=== PATIENT | female | born 1945 | race Caucasian/White ===

== ENCOUNTER → 2024-03-10 16:49 | Outpatient (CLI) | payer MEDICARE, OTHER, SELFPAY ==
--- NOTE | 2024-03-10 16:56 | DI.RAD.S_ITS ---
PROCEDURE: XR FOREARM LT 2V INDICATIONS: Contusion of left forearm, initial encounter TECHNIQUE: 2 views of the forearm were acquired. COMPARISON: None. FINDINGS: Bones: No fractures or dislocations. No suspicious bony lesions. Soft tissues: No suspicious soft tissue calcifications or masses. IMPRESSION: No acute bony abnormality. Dictated by: Morteza Hernandez M.D. on 03/11/2024 at 9:36 Approved by: Morteza Hernandez M.D. on 03/11/2024 at 9:36
== END ==
PROVIDERS: PCP Family Medicine; Referring Provider Family Medicine; Visit Provider Family Medicine
DX: S50.12XA Contusion of left forearm, initial encounter (principal); X58.XXXA Exposure to other specified factors, initial encounter
CPT/HCPCS: 73090

== ENCOUNTER → 2024-10-21 09:49 | Outpatient (CLI) | payer MEDICARE, OTHER, SELFPAY ==
--- NOTE | 2024-10-21 09:53 | DI.RAD.S_ITS ---
PROCEDURE: XR LUMBAR SPINE MIN 4V INDICATIONS: BACK PAIN TECHNIQUE: 5 views of the lumbar spine were acquired, including bilateral oblique views. COMPARISON: [facility], MR, MR LUMBAR SPINE WITHOUT CONTRAST, 04/08/2024, 7:40. [facility], CR, XR LUMBAR SPINE WITH FLEXION EXTENSION 5 VIEWS, 06/04/2024, 9:09. FINDINGS: Bones: 5 nonrib-bearing vertebrae are present. There is normal bony alignment. Chronic appearing superior endplate anterior wedge compression deformity at L1 level is seen with up to 25% loss of L1 vertebral body height anteriorly not significantly changed from previous studies. No new vertebral body compression fracture. Degenerative endplate changes are noted throughout lumbar spine. Bilateral facet arthrosis at L4-5 and bones are seen. No suspicious bony lesions. Soft tissues: Overlying bowel gas pattern is normal. No suspicious soft tissue calcifications. Oblique images: No pars defects. IMPRESSION: Chronic appearing anterior wedge compression deformity involving L1 with up to 25% loss of L1 vertebral body height. No acute compression fracture or significant spondylolisthesis. [id number] degenerative disc disease throughout lumbar spine. No gross pars defects. Dictated by: Leo Ferrera M.D. on 10/21/2024 at 10:22 Approved by: Leo Ferrera M.D. on 10/21/2024 at 10:24
== END ==
PROVIDERS: PCP Family Medicine; Referring Provider Physical Medicine & Rehabilitation; Visit Provider Physical Medicine & Rehabilitation
DX: M47.816 Spondylosis without myelopathy or radiculopathy, lumbar region (principal); M43.8X6 Other specified deforming dorsopathies, lumbar region; M54.9 Dorsalgia, unspecified
CPT/HCPCS: 72110

== ENCOUNTER 2024-11-10 09:52 | Outpatient (CLI) | payer MEDICARE, OTHER, SELFPAY ==
[2024-11-10] VITALS (9 sets, daily range): BP systolic 122–163; BP diastolic 31–73; PULSE 47–57; RESP 12–24; TEMP 36.2; O2SAT 99–100
[2024-11-10] MEDS: MIDAZOLAM 2 MG/2 ML VIAL IV (11:44)
[2024-11-10] MEDS: LIDOCAINE 1% 20 ML 5 ML INJ (11:49)
[2024-11-10] MEDS: BUPIVACAINE 0.5% (PF) 10 ML VIAL 2 ML INJ (11:49)
--- NOTE | 2024-11-10 12:06 | P.PCN_ITS ---
Date/Time/Diagnoses Date of procedure: 11/10/24 Time of procedure: 12:06 Pre-procedure diagnosis: FACET ARTHROPATHY Post-procedure diagnosis: same Procedure Notes Procedure: 1. BILATERAL T12 and L1 DIAGNOSTIC MB BLOCKS Indications: Ofelia is referred by Dr. Pastor for treatment of Bilateral Axial Thoracic back pain. Physician: Prince Rodrigez Total Fluoroscopy time (seconds): 14 Total sedation minutes: 16 Complications: none Procedure in detail & Post-procedure care: DESCRIPTION OF PROCEDURE Fluoroscopically guided, contrast-controlled bilateral T12, L1 medial branch blocks with 0.5cc of 0.5% Marcaine. Following review of allergy and review of potential side effects and complications, including, but not necessarily limited to, infection, allergic reaction, local tissue breakdown, nerve injury, paralysis, stroke and possible , the patient indicated that the patient understood and agreed to proceed. An informed consent document was signed by the patient, witnessed by a nurse, and placed in the patient's chart. After review of previous anaesthesic history and IV conscious sedation the patient was deemed safe to proceed with today's procedure with IV conscious sedation as ASA class II designation. Safety time-out was performed to confirm patient ID, procedure to be performed and site of procedure. IV sedation was accomplished with a combination of 2mg of Versed was administered by the RN after DO order, titrated to patient comfort during the course of the procedure while the patient remained responsive to all verbal commands In the prone position, following sterile prep and drape of the lumbar region, the right T12, L1 anatomical location of the medial branch of the dorsal ramus was identified fluoroscopically. Subsequently an anesthetic skin wheal using 1% lidocaine solution was initiated at each of the anatomical spots. Subsequently then a 22-gauge 3.5-inch spinal needle was atraumatically introduced and advanced under fluoroscopic guidance at each of the corresponding sites at the right T12, L1 MB. After negative aspiration, 0.2cc of Isovue 200 was injected, confirming placement without vascular or intrathecal uptake. Subsequently then 0.5cc of 0.5% Marcaine solution was injected at each of the corresponding sites at the right T12, L1 medial branch locations. The identical procedure was replicated on the left. The patient tolerated the procedure well without signs or symptoms of complications. The patient tolerated the procedure well without signs or symptoms of complications prior to transfer to the recovery area continued monitoring without incident. Post-procedure, the patient was monitored initiating provocative activities to measure the amount of relief from block of the facetogenic pain. The patient reported a VAS of 7 prior to the procedure and a post-procedure VAS of 1. It has been a pleasure to assist in the diagnostic and therapeutic care of your patient. POST OP INSTRUCTIONS The patient was provided with a Pain Log to complete over the next several hours and subsequent days prior to the patient's follow up with the ordering physician. If the patient has biochemistry technician relief to the solution applied, then they may be a candidate for medial branch rhizotomy. The patient is aware, was provided, once again, with a Pain Log and will follow up with the referring physician for review and clinical correlation
== END 2024-11-10 12:28 | disposition home or self-care (01) ==
LOC: RAD 09:53
PROVIDERS: PCP Family Medicine; Referring Provider Physical Medicine & Rehabilitation; Visit Provider Physical Medicine & Rehabilitation
DX: M47.815 Spondylosis without myelopathy or radiculopathy, thoracolumbar region (principal)
CPT/HCPCS: 64490; 64493; 99152; J2250

== ENCOUNTER 2025-01-21 08:59 | Outpatient (CLI) | payer MEDICARE, OTHER, SELFPAY ==
[2025-01-21] VITALS (8 sets, daily range): BP systolic 109–158; BP diastolic 56–72; PULSE 52–58; RESP 14–18; TEMP 36.8; O2SAT 97–100
[2025-01-21] MEDS: MIDAZOLAM 2 MG/2 ML VIAL IV (10:30)
[2025-01-21] MEDS: LIDOCAINE 2% INJ MDV 20ML 5 ML INJ (10:33)
[2025-01-21] MEDS: LIDOCAINE 1% 20 ML INJ (10:34)
--- NOTE | 2025-01-21 10:49 | P.PCN_ITS ---
Date/Time/Diagnoses Date of procedure: 01/21/25 Time of procedure: 10:49 Pre-procedure diagnosis: FACET ARTHROPATHY Post-procedure diagnosis: same Procedure Notes Procedure: 1. BILATERAL T12 and L1 DIAGNOSTIC MB BLOCKS Indications: Ofelia is referred by Dr. Pastor for treatment of Bilateral Axial Thoracic back pain. Physician: Prince Rodrigez Total Fluoroscopy time (seconds): 12 Total sedation minutes: 14 Complications: none Procedure in detail & Post-procedure care: DESCRIPTION OF PROCEDURE Fluoroscopically guided, contrast-controlled bilateral T12, L1 medial branch blocks with 0.5cc of 2% Lidocaine. Following review of allergy and review of potential side effects and complications, including, but not necessarily limited to, infection, allergic reaction, local tissue breakdown, nerve injury, paralysis, stroke and possible , the patient indicated that the patient understood and agreed to proceed. An informed consent document was signed by the patient, witnessed by a nurse, and placed in the patient's chart. After review of previous anaesthesic history and IV conscious sedation the patient was deemed safe to proceed with today's procedure with IV conscious sedation as ASA class II designation. Safety time-out was performed to confirm patient ID, procedure to be performed and site of procedure. IV sedation was accomplished with a combination of 2mg of Versed was administered by the RN after DO order, titrated to patient comfort during the course of the procedure while the patient remained responsive to all verbal commands In the prone position, following sterile prep and drape of the lumbar region, the right T12, L1 anatomical location of the medial branch of the dorsal ramus was identified fluoroscopically. Subsequently an anesthetic skin wheal using 1% lidocaine solution was initiated at each of the anatomical spots. Subsequently then a 22-gauge 3.5-inch spinal needle was atraumatically introduced and advanced under fluoroscopic guidance at each of the corresponding sites at the right T12, L1 MB. After negative aspiration, 0.2cc of Isovue 200 was injected, confirming placement without vascular or intrathecal uptake. Subsequently then 0.5cc of 2% Lidocaine solution was injected at each of the corresponding sites at the right T12, L1 medial branch locations. The identical procedure was replicated on the left. The patient tolerated the procedure well without signs or symptoms of complications. The patient tolerated the procedure well without signs or symptoms of complications prior to transfer to the recovery area continued monitoring without incident. Post-procedure, the patient was monitored initiating provocative activities to measure the amount of relief from block of the facetogenic pain. The patient reported a VAS of 7 prior to the procedure and a post-procedure VAS of 1. It has been a pleasure to assist in the diagnostic and therapeutic care of your patient. POST OP INSTRUCTIONS The patient was provided with a Pain Log to complete over the next several hours and subsequent days prior to the patient's follow up with the ordering physician. If the patient has casino shift manager relief to the solution applied, then they may be a candidate for medial branch rhizotomy. The patient is aware, was provided, once again, with a Pain Log and will follow up with the referring physician for review and clinical correlation
== END 2025-01-21 11:05 | disposition home or self-care (01) ==
LOC: RAD 08:59
PROVIDERS: PCP Family Medicine; Referring Provider Physical Medicine & Rehabilitation; Visit Provider Physical Medicine & Rehabilitation
DX: M47.815 Spondylosis without myelopathy or radiculopathy, thoracolumbar region (principal)
CPT/HCPCS: 64490; 64491; 99152; J2250

== ENCOUNTER 2025-02-05 16:35 | Emergency (ER) | payer MEDICARE, OTHER, SELFPAY ==
[2025-02-05] VITALS (13 sets, daily range): BP systolic 118–166; BP diastolic 57–83; PULSE 55–72; RESP 14–24; TEMP 36.4; O2SAT 96–99; BMI 24.7
--- NOTE | 2025-02-05 16:54 | DI.CT.S_ITS ---
PROCEDURE: CT ABDOMEN PELVIS WO CON INDICATIONS: LLQ pain TECHNIQUE: CT of the abdomen and pelvis was obtained without intravenous contrast. Coronal and sagittal reformats were performed. For radiation dose reduction, the following was used: automated exposure control, adjustment of mA and/or kV according to patient size. COMPARISON: None. FINDINGS: Image quality: Diagnostic. Lower Chest: No significant findings. ABDOMEN: Liver: No contour-deforming mass. Gallbladder: No radiopaque gallstones or wall thickening. Biliary ducts: No biliary dilation. Pancreas: No ductal dilation. Spleen: Size is within normal limits. Adrenal Glands: No adrenal nodules. Kidneys and Ureters: No hydronephrosis. No contour-deforming mass. Stomach and Bowel: Fecal stasis in the colon is seen. No bowel obstruction or abnormal bowel wall thickening. No mesenteric fat stranding. Surgical clip is seen in right lower quadrant. Mild sigmoid diverticulosis without CT evidence of acute diverticulitis. No abscess collection. Postsurgical changes are noted in epigastric region from prior Kimberly fundoplication. Fluid distension of stomach lumen. No significant gastric wall thickening. Peritoneum: No abnormal intraperitoneal fluid. No free air. Ventral Wall: No significant hernia. Abdominal Nodes: No retroperitoneal or mesenteric adenopathy by size criteria. Vessels: Aorta and inferior vena cava are normal in size. PELVIS: Pelvic Organs: Unremarkable. Bladder: Questionable mild bladder wall thickening. Pelvic Nodes: No enlarged lymph nodes. Miscellaneous: No inguinal hernias are seen. Bones: No aggressive osseous abnormality. IMPRESSION: 1. Questionable mild bladder wall thickening, low-grade cystitis cannot be excluded bladder. No discrete bladder wall mass or calcified bladder stones. No obstructing renal stones or hydronephrosis. 2. Postsurgical changes from prior Kimberly fundoplication. Fluid distended stomach lumen with air-fluid level, low-grade gastroparesis cannot be excluded suggest clinical correlation. 3. No bowel obstruction. No abnormal bowel wall thickening. Moderate constipation. Sigmoid diverticulosis without CT evidence of acute diverticulitis. No free fluid or free air. Dictated by: Leo Ferrera M.D. on 02/05/2025 at 18:04 Approved by: Leo Ferrera M.D. on 02/05/2025 at 18:07
[2025-02-05 18:10] LABS: Add Manual Diff / Slide Review NO; Hematocrit 38.4 % (36-46); Hemoglobin 13.0 g/dL (12.0-16.0); Lymphocytes Absolute Auto 1800 /uL (1100-4500); Mean Corpuscular HGB Conc 34.0 % (30-36); Mean Corpuscular Hemoglobin 31.7 PG (26-34); Mean Corpuscular Volume 93.3 fL (80-100); Platelet Count 225 X10^3/uL (150-400)
[2025-02-05 18:27] LABS: Lactate (Lactic Acid) 1.3 mmol/L (0.7-2.1)
[2025-02-05 18:28] LABS: Alanine Aminotransferase 13 IU/L (<35); Albumin 4.4 g/dL (3.5-5.0); Albumin Globulin Ratio 1.4 (1.0-2.8); Alkaline Phosphatase 65 U/L (38-126); Blood Urea Nitrogen 20 mg/dL (7-17); Calcium 9.3 mg/dL (8.4-10.2); Carbon Dioxide 25 mmol/L (22-32); Chloride 105 mmol/L (98-107); Estimated Glomerular Filt Rate > 60 mL/min (>60); Globulin 3.2 g/dL (1.7-4.1); Glucose 103 mg/dL (70-99); HEMOLYSIS 22 (0-50); Lipase 29 U/L (23-300); Magnesium 2.1 mg/dL (1.6-2.3); Potassium 4.4 mmol/L (3.4-5.1); Sodium 138 mmol/L (137-145); Total Protein 7.6 g/dL (6.3-8.2)
[2025-02-05] MEDS: SODIUM CHLORIDE 0.9% 1,000 ML 1000 ML IV (19:59)
[2025-02-05] MEDS: ONDANSETRON 4 MG/2 ML INJ IV (20:01)
[2025-02-05 20:53] LABS: Bilirubin Urine UA NEGATIVE (NEGATIVE); Color Urine UA YELLOW; Glucose Urine UA NEGATIVE (Negative); Ketones Urine UA NEGATIVE (NEGATIVE); Leukocyte Esterase Urine UA 1+ (NEGATIVE); Nitrite Urine UA POSITIVE (Negative); Occult Blood Urine UA NEGATIVE (Negative); Protein Urine UA NEGATIVE (Negative); Specific Gravity Urine UA 1.010 (1.000-1.035); Urobilinogen Urine UA 0.2 E.U./dL (0.2)
[2025-02-05 20:55] LABS: pH Urine UA 7.0 (4.5-8.0)
[2025-02-05 20:56] LABS: Appearance Urine UA Cloudy
--- NOTE | 2025-02-05 20:56 | ED.GENADULT ---
HPI - General Adult General Chief complaint: Abdominal Pain Stated complaint: Abdominal Pain, Sent from PCP Time Seen by Provider: 02/05/25 16:54 History of Present Illness HPI narrative: 79-year-old woman with other remarkable history of endometrial cancer with radical hysterectomy, breast cancer with bilateral mastectomy, 2 Kimberly fundoplication her currently is on eyedrops as her only medication. She has multiple orthopedic problems and does have chronic back pain. She comes in today because she is experiencing a sharp pain in the left lower quadrant abdomen. She is having no dysuria, fevers, vomiting, nausea, palpitations or chest pain. She states she has been having fairly regular bowel movements. Her main concern is that this pain is new and different. Related Data Home Medications ?Medication ?Instructions ?Recorded ?Confirmed latanoprost 0.005 % eye drops 2.5 drp EYE-BOTH DAILY 10/21/24 01/04/25 timolol maleate 0.5 % eye drops drp EYE-BOTH 10/21/24 01/04/25 Previous Rx's ?Medication ?Instructions ?Recorded meloxicam 15 mg tablet 15 mg PO QAM #30 tabs 12/31/24 Allergies Allergy/AdvReac Type Severity Reaction Status Date / Time Iodinated Contrast Media Allergy Severe Anaphylaxis Verified 02/05/25 16:57 iodine Allergy Intermediate SWELLING Verified 02/05/25 16:57 BEES Allergy Intermediate SWELLING Uncoded 10/21/24 11:25 Review of Systems Review of Systems Narrative: Pertinent positive and negative findings as per HPI Patient History Medical History Facet arthropathy, lumbar Facet arthropathy, thoracic L1 vertebral fracture Exam Initial Vital Signs Initial Vital Signs: Vital Signs Temperature 97.6 F 02/05/25 16:54 Pulse Rate 72 02/05/25 16:54 Respiratory Rate 16 02/05/25 16:54 Blood Pressure 166/80 H 02/05/25 16:54 Pulse Oximetry 97 02/05/25 16:54 Oxygen Delivery Method Room Air 02/05/25 16:54 General: Healthy appearing, in no acute distress. Able to give a complete and coherent history. Well-nourished well-developed HEENT: Moist mucous membranes, normal sclera with reactive pupils, Respiratory: Lungs are clear to auscultation, no wheezing no rales no rhonchi. Full and symmetrical air movement Cardiac: Regular rate and rhythm 2/6 systolic ejection murmur Abdomen: Soft, tender in the left lower quadrant without rebound or guarding. No flank pain. No suprapubic tenderness Skin: Warm and dry, no rashes Neurologic: Grossly neurologically intact with no obvious asymmetries or abnormalities Extremities: No trauma, well perfused Psych: Cooperative, appropriate insight and affect Course Orders Ordered: ED Orders 02/05/25 16:54 CT abdomen pelvis wo con Stat 02/05/25 16:56 Blood Culture Stat 02/05/25 18:00 Complete Blood Count AUTO DIFF Stat Comprehensive Metabolic Panel Stat Lactate (Lactic Acid) Stat Lipase Stat Magnesium Stat 02/05/25 20:45 UA Complete [Urinalysis and Microscopic] Stat Hydromorphone HCl (Hydromorphone Hcl 0.5 Mg/0.5 Ml Syringe) 0.5 mg IV Q15MIN PRN PRN Reason: Pain, Discontinued Medications Sodium Chloride (Normal Saline 0.9%) 1,000 mls @ 1,000 mls/hr IV BOLUS ONE Stop: 02/05/25 17:53 Last Infusion: 02/05/25 20:48 Dose: Infused Documented By: Admin: 02/05/25 19:59 Dose: 1,000 mls/hr Documented By: ANABEL Ondansetron HCl (Ondansetron 4 Mg/2 Ml Inj) 4 mg IV NOW ONE Stop: 02/05/25 16:55 Last Admin: 02/05/25 20:01 Dose: 4 mg Documented By: ANABEL Vital Signs Vital signs: Vital Signs - 8 hr 02/05/25 16:54 02/05/25 19:58 02/05/25 20:03 Temperature 97.6 F Pulse Rate 72 57 L 55 L Respiratory Rate 16 14 16 Blood Pressure 166/80 H 147/67 H Pulse Oximetry 97 97 97 Oxygen Delivery Method Room Air Room Air 02/05/25 20:04 Temperature Pulse Rate 56 L Respiratory Rate 20 Blood Pressure Pulse Oximetry 96 Oxygen Delivery Method Room Air Medical Decision Making Lab Data 02/05/25 18:00 02/05/25 18:00 Labs: Lab Results 02/05/25 Range/Units 18:00 WBC 4.9 (4.5-11.0) X10^3/uL RBC 4.11 (4.0-5.2) X10^6/uL Hgb 13.0 (12.0-16.0) g/dL Hct 38.4 (36-46) % MCV 93.3 (80-100) fL MCH 31.7 (26-34) PG MCHC 34.0 (30-36) % RDW 13.7 (11.6-14.8) % Plt Count 225 (150-400) X10^3/uL Neut % (Auto) 39.9 L (50-75) % Lymph % (Auto) 37.8 (25-40) % [place] % (Auto) 12.2 (3-14) % Eos % (Auto) 8.8 H (2-4) % Baso % (Auto) 1.3 (0-2) % Neut # (Auto) 1900 (7358-9868) /uL Lymph # (Auto) 1800 (8085-9487) /uL [place] # (Auto) 600 (0-900) /uL Eos # (Auto) 400 (0-450) /uL Baso # (Auto) 100 (0-100) /uL Sodium 138 (137-145) mmol/L Potassium 4.4 (3.4-5.1) mmol/L Chloride 105 (98-107) mmol/L Carbon Dioxide 25 (22-32) mmol/L BUN 20 H (7-17) mg/dL Creatinine 0.63 (0.52-1.04) mg/dL Estimated GFR > 60 (>60) mL/min BUN/Creatinine Ratio 31.7 H (6-22) Glucose 103 H (70-99) mg/dL Lactate 1.3 (0.7-2.1) mmol/L Calcium 9.3 (8.4-10.2) mg/dL Magnesium 2.1 (1.6-2.3) mg/dL Total Bilirubin 0.5 (0.2-1.3) mg/dL AST 23 (14-36) IU/L ALT 13 (<35) IU/L Alkaline Phosphatase 65 (38-126) U/L Total Protein 7.6 (6.3-8.2) g/dL Albumin 4.4 (3.5-5.0) g/dL Globulin 3.2 (1.7-4.1) g/dL Albumin/Globulin Ratio 1.4 (1.0-2.8) Lipase 29 (23-300) U/L Imaging Data CT scan - abdomen/pelvis: Radiologist's Impression: PROCEDURE: CT ABDOMEN PELVIS WO CON INDICATIONS: LLQ pain TECHNIQUE: CT of the abdomen and pelvis was obtained without intravenous contrast. Coronal and sagittal reformats were performed. For radiation dose reduction, the following was used: automated exposure control, adjustment of mA and/or kV according to patient size. COMPARISON: None. FINDINGS: Image quality: Diagnostic. Lower Chest: No significant findings. ABDOMEN: Liver: No contour-deforming mass. Gallbladder: No radiopaque gallstones or wall thickening. Biliary ducts: No biliary dilation. Pancreas: No ductal dilation. Spleen: Size is within normal limits. Adrenal Glands: No adrenal nodules. Kidneys and Ureters: No hydronephrosis. No contour-deforming mass. Stomach and Bowel: Fecal stasis in the colon is seen. No bowel obstruction or abnormal bowel wall thickening. No mesenteric fat stranding. Surgical clip is seen in right lower quadrant. Mild sigmoid diverticulosis without CT evidence of acute diverticulitis. No abscess collection. Postsurgical changes are noted in epigastric region from prior Kimberly fundoplication. Fluid distension of stomach lumen. No significant gastric wall thickening. Peritoneum: No abnormal intraperitoneal fluid. No free air. Ventral Wall: No significant hernia. Abdominal Nodes: No retroperitoneal or mesenteric adenopathy by size criteria. Vessels: Aorta and inferior vena cava are normal in size. PELVIS: Pelvic Organs: Unremarkable. Bladder: Questionable mild bladder wall thickening. Pelvic Nodes: No enlarged lymph nodes. Miscellaneous: No inguinal hernias are seen. Bones: No aggressive osseous abnormality. IMPRESSION: 1. Questionable mild bladder wall thickening, low-grade cystitis cannot be excluded bladder. No discrete bladder wall mass or calcified bladder stones. No obstructing renal stones or hydronephrosis. 2. Postsurgical changes from prior Kimberly fundoplication. Fluid distended stomach lumen with air-fluid level, low-grade gastroparesis cannot be excluded suggest clinical correlation. 3. No bowel obstruction. No abnormal bowel wall thickening. Moderate constipation. Sigmoid diverticulosis without CT evidence of acute diverticulitis. No free fluid or free air. Dictated by: Leo Ferrera M.D. on 02/05/2025 at 18:04 MDM Narrative Medical decision making narrative: 79-year-old woman presents with left lower quadrant abdominal pain in the setting of prior endometrial and breast cancer. Concern for neoplastic process, partial obstruction, kidney stones, diverticulitis, pyelonephritis, urinary tract infection On exam she is having tenderness in the left lower quadrant without rebound or guarding. There was no suprapubic tenderness, no flank pain Labs show CBC unremarkable Chemistries are reassuring including renal function and liver Urinalysis shows nitrites 1+ leukocyte esterase white cells and bacteria specimen has been cultured CT scan has a question of mild bladder wall thickening low-grade cystitis can not be excluded. No bowel obstruction no abnormal bowel thickening, no diverticulitis no obstruction Patient is re-examined. Pain is somewhat improved. We discussed the possibility of a bladder infection however without burning, dysuria or any other symptoms she would prefer this time to wait until culture returns prior to beginning any antibiotics. Given the normal white blood cell count absence of suggestions of pyelonephritis I believe this is reasonable. She declines any pain medication this point, we did talk about extra dose or 2 of MiraLax to help empty her bladder bowels completely to see if this helps. Clearly discussed reasons to return to the emergency department including increased pain, fever, bloody diarrhea, absence of any stools or new findings of any concern. There was no indication today for hospitalization or additional workup and she is safe for discharge Discharge Plan Departure Patient Disposition: Home Clinical Impression: Abdominal pain, acute, left lower quadrant Instructions: DI for Abdominal Pain-Adult Activity Restrictions/Additional Instructions: Thank you for coming in today Your blood work does not show signs of acute infection, kidney problems or liver problems Your urine suggests that there may be a developing bladder infection. The urine has been cultured. We discussed starting antibiotics now versus waiting for the culture and together decided that we would wait for culture. It does return positive we will contact you and begin oral antibiotics to treat the identified infection The remainder of CT scan is reassuring with no signs of any tumors, obstructions, diverticulitis or findings that would require hospitalization or further workup today There was a suggestion of slight constipation, you might try a extra dose or 2 of MiraLax to see if having an extra bowel movement helps with the pain. If you are getting worse, develop any blood in your stools, notable urinary symptoms such as frequency or urgency or blood in your urine you do need to return to the emergency depart Prescriptions: No Action meloxicam 15 mg tablet 15 mg PO QAM Qty: 30 2RF timolol maleate 0.5 % drops EYE-BOTH latanoprost 0.005 % drops 2.5 drp EYE-BOTH DAILY Rx Instructions: 2 DROPS Referrals: Anna Pastor MD [Primary Care Provider, Family Practice] Stand Alone Forms: Patient Portal/API
[2025-02-05 21:10] LABS: Culture Indicated Urine Specimen Cultured
== END 2025-02-05 22:47 | disposition home or self-care (01) ==
PROVIDERS: Emergency Provider Emergency Medicine; PCP Family Medicine
DX: R10.32 Left lower quadrant pain (principal); A49.8 Other bacterial infections of unspecified site
CPT/HCPCS: 36415; 74176; 80053; 81001; 83605; 83690; 83735; 85025; 87040; 87077; 87086; 87186; 96361; 96374; 99283; 99284; J2405

== ENCOUNTER 2025-04-06 07:07 | Outpatient (CLI) | payer MEDICARE, OTHER, SELFPAY ==
[2025-04-06] VITALS (16 sets, daily range): BP systolic 104–141; BP diastolic 55–69; PULSE 48–55; RESP 14–18; TEMP 36.6; O2SAT 98–100
[2025-04-06] MEDS: MIDAZOLAM 2 MG/2 ML VIAL IV (08:41)
[2025-04-06] MEDS: LIDOCAINE 1% 20 ML 5 ML INJ (08:48)
[2025-04-06] MEDS: MIDAZOLAM 2 MG/2 ML VIAL 1 MG IV (09:01)
--- NOTE | 2025-04-06 09:29 | P.PCN_ITS ---
Date/Time/Diagnoses Date of procedure: 04/06/25 Time of procedure: 09:29 Pre-procedure diagnosis: 1. RECALCITRANT FACET ARTHROPATHY Post-procedure diagnosis: same Procedure Notes Procedure: 1. BILATERAL T12, L1 MEDIAL BRANCH RADIOFREQUENCY NEUROTOMY Indications: Ofelia is referred by Dr. Pastor for treatment of facet arthropathy. Physician: Prince Rodrigez Total Fluoroscopy time (seconds): 24 Total sedation minutes: 39 Complications: none Procedure in detail & Post-procedure care: DESCRIPTION OF PROCEDURE Bilateral T12, L1 medial branch radiofrequency neurotomy The patient is well known to this clinic having undergone previous facet injections with good but temporary relief. The patient has experienced appropriate, concordant relief with previous facet and median branch blocks but the patient's pain has been recalcitrant to further conservative measures. Therefore, based upon the patient's relief and persistent symptoms, the patient is considered an appropriate candidate for facet rhizotomy. All of the patient's questions regarding the risks versus benefits of the procedure, including, but not limited to, bleeding, infection, temporary as well as lasting nerve injury, paralysis, stroke, and , as well treatment alternatives were answered to satisfaction. After obtaining informed consent, denial of pertinent drug allergies, as well as being made aware of the potential risks of bleeding, infection, spinal cord trauma, paralysis, temporary and permanent nerve damage, seizure, stroke, and possible , the patient was brought to the fluoroscopy suite and positioned prone on the fluoroscopy table. After review of previous anaesthesic history and IV conscious sedation the patient was deemed safe to proceed with today's procedure with IV conscious sedation as ASA class II designation. Safety time-out was performed to confirm patient ID, procedure to be performed and site of procedure. IV sedation was accomplished with a combination of 3mg of Versed administered by the RN after DO order, titrated to patient comfort during the course of the procedure while the patient remained responsive to all verbal commands. The lumbar region was prepped in usual sterile fashion and covered with a fenestrated drape in the usual sterile fashion. Appropriate monitors applied including pulse oximeter, pulse, and blood pressure for regular monitoring throughout the procedure. After local infiltration using 1% lidocaine, under fluoroscopic guidance, a 10- cm RF insulated needle with a 10-mm active tip was positioned parallel to the junction of the right the superior articulating process where the L1 medial branch resides. Needle placement was confirmed with motor stimulation of .5v on the right which produced local stimulation without radicular component. The stimulation was then increased to 2v with, once again, only local multifidus stimulation without radicular component. The needle was then removed and the identical procedure was performed along the length of the right LT12 medial branch with motor stimulation at .7v on the right. The medial branches were then anesthetised with 0.5% marcaine. This was then followed by two discreet lesions performed at 80 degrees Celsius for 90 seconds each. The identical procedures were repeated on the left. The patient tolerated the procedure well without signs or symptoms of complications prior to transfer to the recovery area continued monitoring without incident. The patient was then transferred to the recovery area where they were observed for an appropriate period of time after the injection. The patient reported a VAS score of 9 prior to the procedure and a post-procedure VAS of 0. POST OP INSTRUCTIONS The patient was provided a Pain Log to continue to record the patient's response to the target-specific procedure prior to the patient's follow-up visit with the referring physician. Additionally, specific post-injection care instructions and a contact number to our office were provided if concerns arise regarding possible complications associated with the procedure are suspected.
== END 2025-04-06 09:56 | disposition home or self-care (01) ==
LOC: RAD 07:09
PROVIDERS: PCP Family Medicine; Referring Provider Family Medicine; Visit Provider Physical Medicine & Rehabilitation
DX: M47.814 Spondylosis without myelopathy or radiculopathy, thoracic region (principal); M47.816 Spondylosis without myelopathy or radiculopathy, lumbar region
CPT/HCPCS: 64633; 64636; 99152; 99153; J2250